=== PATIENT | female | born 1975 | race Caucasian/White ===

== ENCOUNTER → 2020-05-25 | Outpatient (CLI) | payer BC | LOC: ZCOL.LAB 14:14 | DX: J02.9 Acute pharyngitis, unspecified (principal); R06.02 Shortness of breath; R51.9 Headache, unspecified; Z20.828 Contact with and (suspected) exposure to other viral communicable diseases ==

== ENCOUNTER 2020-10-05 12:47 | Emergency (ER) | payer BC ==
[~2020-10-05] VITALS: Ht 165.1 cm; Wt 93.2 kg
[2020-10-05] MEDS ORDERED: VENLAFAXINE225 MG PO (13:35)
[2020-10-05] MEDS ORDERED: NUVIGIL250 MG (13:36)
[2020-10-05] MEDS ORDERED: TOPAMAX 100MG100 M1 PO (13:36)
[2020-10-05] MEDS ORDERED: ABILIFY 15MG TA15 MG PO (13:37)
[2020-10-05] MEDS ORDERED: ZANAFLEX CAPSULE4 MG PO (13:37)
[2020-10-05] MEDS ORDERED: FIORICET 325 MG1 TA1 PO (13:38)
[2020-10-05] MEDS ORDERED: ZOFRAN ODT4 MG PO (14:03)
[2020-10-05 14:28] VITALS: BP 116/70; PULSE 72
== END 2020-10-05 14:47 | disposition home or self-care (01) ==
LOC: COL.ER 12:47
DX: G43.909 Migraine, unspecified, not intractable, without status migrainosus (principal); F31.9 Bipolar disorder, unspecified; Z88.1 Allergy status to other antibiotic agents; Z88.6 Allergy status to analgesic agent; Z87.891 Personal history of nicotine dependence
CPT/HCPCS: J1885; J2550; J7030